=== PATIENT | female | born 1985 | race Caucasian/White ===

== ENCOUNTER 2022-03-02 19:51 | Emergency (ER) | payer SELFPAY ==
[~2022-03-02] VITALS: Ht 167.6 cm; Wt 100.0 kg
[2022-03-02 19:56] VITALS: BP 132/77
[2022-03-02] MEDS ORDERED: IBUPROFEN 800 MG TABLET. PO ONE (20:15)
[2022-03-02] MEDS ORDERED: ORPHENADRINE CITRATE 60 MG/2 ML VIAL. IM ONE (20:30)
--- NOTE | 2022-03-02 21:08 | RAD ---
Exam: Left foot 3 views INDICATION: Left foot and calf pain TECHNIQUE: Frontal, lateral and oblique views of the left foot Comparisons: None FINDINGS: Bone mineralization is normal. No acute or healed fractures. Soft tissues are unremarkable. Joint spa manuel are well-maintained. IMPRESSION: No acute osseous abnormality. Electronically signed by: Lety Howard MD (03/02/2022 9:05 PM) LORRAINE
--- NOTE | 2022-03-02 21:08 | RAD ---
LEFT TIBIA FIBULA AP LATERAL Clinical Indication: Reason: LEFT FOOT AND CALF PAIN AFTER TEARING SENSATION / Spl. Instructions: / History: Comparison: None. Findings: The knee and ankle joints are grossly intact. There is small inferior calcaneal bone spur. There is n o acute fracture or dislocation. The patella is in anatomic position. There is no obvious knee joint effusion, the suprapatellar region is incompletely imaged. There is no significant soft tissue swelli ng of the calf. No thickening of the Achilles tendon is seen. No radiopaque foreign body is identifie d. IMPRESSION: No acute fracture. Electronically signed by: Osmar Alfaro MD (03/02/2022 9:06 PM) QIBRITTNEY
[2022-03-02] MEDS ORDERED: ORPH-16 PO (21:35)
--- NOTE | 2022-03-02 21:35 | PHYS DOC ---
Past History Additional Past Medical Histor: seasonal allergies (MAURO SNIDER) Past Surgical History: (MAURO SNIDER) Alcohol Use: None (MAURO SNIDER) General Adult EDM: Chief Complaint: LOWER EXT PAIN HPI: HPI: Patient is a 36-year-old female who presents with left calf pain that began just prior to arrival. Patient states that she was playing with her toddler. She went to step down onto her toes and as her heel hit the floor, she felt a "tearing sensation" extending up the posterior calf. She immediately called 911. She denies any trauma or other pain/injuries. (MAURO SNIDER) Review of Systems: Review of Systems: ROS negative or noncontributory except as mentioned in HPI. (MAURO SNIDER) Current Medications: Current Meds: Current Medications Medications (Trade) Dose Ordered Sig/Esme Start Time Stop Time Status Last Admin Dose Admin Ibuprofen (Motrin) 800 mg 1X ONCE 03/02/22 20:15 03/02/22 20:16 DC 03/02/22 20:18 800 MG Orphenadrine Citrate (Norflex) 60 mg 1X ONCE 03/02/22 20:30 03/02/22 20:31 DC 03/02/22 20:29 60 MG (MAURO SNIDER) Allergies: Allergies: Allergies Coded Allergies Type Severity Reaction Last Updated Verified sulfamethoxazole Allergy Unknown 03/02/22 Yes trimethoprim Allergy Unknown 03/02/22 Yes (MAURO SNIDER) Physical Exam: PE: Constitutional: Well developed, well nourished, no acute distress, non-toxic appearance. HENT: Normocephalic, atraumatic, bilateral external ears normal, nose normal. Eyes: EOMI, conjunctiva normal, no discharge. Neck: Normal range of motion, no stridor. Skin: Warm, dry, no erythema, no rash. Extremities: Left calf tenderness without swelling or erythema, no cyanosis, no clubbing, ROM intact, no edema, DP/PT pulses 2+ and symmetrical. Neurologic: Alert and oriented x4, normal motor function, normal sensory function, no focal deficits noted. (MAURO SNIDER) Current Patient Data: Vital Signs: Vital Signs Date Time Temp Pulse Resp B/P (MAP) Pulse Ox O2 Delivery O2 Flow Rate FiO2 03/02/22 19:56 98.9 89 20 132/77 (95) 99 Room Air (MAURO SNIDER) Radiology/Procedures: Radiology/Procedures: PROCEDURE: FOOT LEFT 3V Exam: Left foot 3 views INDICATION: Left foot and calf pain TECHNIQUE: Frontal, lateral and oblique views of the left foot Comparisons: None FINDINGS: Bone mineralization is normal. No acute or healed fractures. Soft tissues are unremarkable. Joint spaces are well-maintained. IMPRESSION: No acute osseous abnormality. Electronically signed by: Lety Howard MD (03/02/2022 9:05 PM) [facility] PROCEDURE: TIBIA FIBULA LEFT LEFT TIBIA FIBULA AP LATERAL Clinical Indication: Reason: LEFT FOOT AND CALF PAIN AFTER TEARING SENSATION / Spl. Instructions: / History: Comparison: None. Findings: The knee and ankle joints are grossly intact. There is small inferior calcaneal bone spur. There is no acute fracture or dislocation. The patella is in anatomic position. There is no obvious knee joint effusion, the suprapatellar region is incompletely imaged. There is no significant soft tissue swelling of the calf. No thickening of the Achilles tendon is seen. No radiopaque foreign body is identified. IMPRESSION: No acute fracture. Electronically signed by: Osmar Alfaro MD (03/02/2022 9:06 PM) [facility] (MAURO SNIDER) Heart Score: C/O Chest Pain: No (MAURO SNIDER) Course & Med Decision Making: Course & Med Decision Making Pertinent Labs and Imaging studies reviewed. (See chart for details) Patient is a 36-year-old female who presents with left calf pain that is likely musculoskeletal in nature. Plain films obtained to assess any acute abnormalities visible on x-ray. Patient treated with Norflex and ibuprofen. No acute abnormalities are seen on x-ray. Patient counseled on supportive treatment measures for muscle tears. She is advised to follow-up with her primary care provider should her symptoms not improve in the next week or so. All of her questions were answered. Return precautions were provided. Patient understand and is agreeable to discharge plan. (MAURO SNIDER) Dragon Disclaimer: Dragon Disclaimer: This electronic medical record was generated, in whole or in part, using a voice recognition dictation system. (MAURO SNIDER) Attending Co-Sign The patient was seen and interviewed as well as examined at the bedside. The chart was reviewed. The case was discussed. Agree with the plan of care. (VESTA CHAN DO) Departure Departure: Impression: Primary Impression: Strain of gastrocnemius muscle of left lower extremity Qualified Codes: S86.112A - Strain of other muscle(s) and tendon(s) of posterior muscle group at lower leg level, left leg, initial encounter Disposition: HOME / SELF CARE / HOMELESS Condition: STABLE Referrals: GUILLERMO FELIZ MD (PCP) Patient Instructions: Muscle Strain, [id number] Additional Instructions: EMERGENCY DEPARTMENT GENERAL DISCHARGE INSTRUCTIONS Thank you for coming to [facility] (ED) today and trusting us with you care. We trust that you had a positive experience in our Emergency Department. If you wish to speak to the department management, you may call the director at [phone]. YOUR FOLLOW UP INSTRUCTIONS ARE FOLLOWS: 1. Follow up with your primary care doctor. If you do not have a primary doctor, please ask for a resource list of physicians or clinics that may be able to assist you with follow up care. 2. The emergency provider has interpreted your imaging studies, if any were ordered. The radiology mission support specialist also reviewed them. If there is a change in the findings, you will be notified in 48 hours when at all possible. 3. If a lab test or culture has been done, your results will be reviewed and you will be notified if you need a change in treatment. 4. Follow instructions verbalized to you and refer to the printouts if needed. ADDITIONAL INSTRUCTIONS AND INFORMATION: 1. Your care today has been supervised by a physician who is specially trained in emergency care. Many problems require more than one evaluation for a complet e diagnosis and treatment. We recommend that you schedule your follow up appointment as recommended to ensure complete treatment of you illness or injury. If you are unable to obtain follow up care and continue to have a problem, or if your condition worsens, we recommend that you return to the ED. 2. We are not able to safely determine your condition over the phone nor are we able to give sound medical advice over the phone. For these safety reasons, if you call for medical advice we will ask you to come to the ED for further evaluation. 3. If you have any questions regarding these discharge instructions please call the ED at [phone]. SAFETY INFORMATION: In the interest of safety, wellness, and injury prevention; we encourage you to wear your seat belt, if you smoke; quite smoking, and we encourage family to use a protective helmet for bicycling and other sporting events that present an increased risk for head injury. IF YOUR SYMPTOMS WORSEN OR NEW SYMPTOMS DEVELOP, OR YOU HAVE CONCERNS ABOUT YOUR CONDITION; OR IF YOUR CONDITION WORSENS WHILE YOU ARE WAITING FOR YOUR FOLLOW UP APPOINTMENT; EITHER CONTACT YOUR PRIMARY CARE DOCTOR, THE PHYSICIAN WHOSE NAME AND NUMBER YOU WERE GIVEN, OR RETURN TO THE ED IMMEDIATELY. Scripts Orphenadrine Citrate (ORPHENADRINE CITRATE) 100 Mg Tablet.er 1 TAB PO Q12HR for muscle pain, #20 TAB 0 Refills Prov: MAURO SNIDER 03/02/22 MAURO SNIDER Mar 02, 2022 21:35 VESTA CHAN DO Mar 05, 2022 15:02
== END 2022-03-02 21:50 | disposition home or self-care (01) ==
LOC: ER 19:51
DX: S86.112A Strain of other muscle(s) and tendon(s) of posterior muscle group at lower leg level, left leg, initial encounter (principal); Z88.2 Allergy status to sulfonamides; Z88.1 Allergy status to other antibiotic agents; W22.8XXA Striking against or struck by other objects, initial encounter; Y93.89 Activity, other specified; Y92.89 Other specified places as the place of occurrence of the external cause; Y99.8 Other external cause status
CPT/HCPCS: 73590; 73630; 96372; 99284; J2360